=== PATIENT | male | born 1980 | race Hispanic/Latino ===

== ENCOUNTER 2019-02-16 18:15 | Emergency (ER) | payer OTHER ==
--- NOTE | 2019-02-16 19:37 | ER ---
Nurse's Notes [facility] Name: Rocky Lauren Age: 38 yrs Sex: Male : 1980 Arrival Date: 02/16/2019 Time: 18:21 Bed 14 Private MD: Diagnosis: Nondisplaced fracture of fifth metatarsal bone, right foot Presentation: 02/16 18:22 Presenting complaint: Patient states: right foot injury and "heard a pop" today after sv tripping on his shoes. Transition of care: patient was not received from another setting of care. Onset of symptoms was February 16, 2019. Initial Sepsis Screen: Does the patient meet any 2 criteria? No. Patient's initial sepsis screen is negative. Does the patient have a suspected source of infection? No. Patient's initial sepsis screen is negative. Care prior to arrival: None. 18:22 Method Of Arrival: Wheelchair sv 18:22 Acuity: DEYSI 4 sv 19:10 Risk Assessment: Do you want to hurt yourself or someone else? Patient reports no ph desire to harm self or others. Historical: - Allergies: 18:22 No Known Allergies; sv - PMHx: 18:22 Back pain; sv - PSHx: 18:22 None; sv - Immunization history:: Adult Immunizations up to date. - Social history:: Smoking status: Patient/guardian denies using tobacco. - Ebola Screening: : No symptoms or risks identified at this time. Screenin:09 Abuse screen: Denies threats or abuse. Denies injuries from another. Nutritional ph screening: No deficits noted. Tuberculosis screening: No symptoms or risk factors identified. Fall Risk None identified. Assessment: 19:08 Pain: Complains of pain in lateral side of right foot. Neuro: Level of Consciousness is ph awake, alert, obeys commands, Oriented to person, place, time, situation. Cardiovascular: Capillary refill < 3 seconds in bilateral fingers Patient's skin is warm and dry. Respiratory: Airway is patent Respiratory effort is even, unlabored, Respiratory pattern is regular, symmetrical. Derm: Skin is intact, is healthy with good turgor, Skin is pink, warm \\T\\ dry. Musculoskeletal: Circulation, motion, and sensation intact. Range of motion: intact in all extremities, Swelling present in lateral side of right foot. 19:22 Reassessment: Patient appears in no apparent distress at this time. No changes from jb4 previously documented assessment. Patient and/or family updated on plan of care and expected duration. Pain level reassessed. Patient is alert, oriented x 3, equal unlabored respirations, skin warm/dry/pink. 20:02 Reassessment: Patient appears in no apparent distress at this time. Patient and/or jb4 family updated on plan of care and expected duration. Pain level reassessed. Patient is alert, oriented x 3, equal unlabored respirations, skin warm/dry/pink. Pt wheeled out of ED by emergency room technician. verbalized understanding of D/c instructions. Vital Signs: 18:22 BP 134 / 96; Pulse 103; Resp 18; Temp 98.8; Pulse Ox 97% ; Weight 83.91 kg; Height 5 sv ft. 9 in. (175.26 cm); Pain 10/10; 19:22 BP 126 / 97; Pulse 93; Resp 16; Pulse Ox 98% on R/A; jb4 18:22 Body Mass Index 27.32 (83.91 kg, 175.26 cm) sv ED Course: 18:21 Patient arrived in ED. ss4 18:22 Triage completed. sv 18:23 Arm band placed on. sv 18:24 Teresita Anthony, RN is Primary Nurse. ph 18:25 Marshall Manuel PA is PHCP. cp 18:25 Marshall Arciniega MD is Attending Physician. cp 18:48 XRAY Foot RIGHT 3 View In Process Unspecified. EDMS 19:10 Patient has correct armband on for positive identification. Bed in low position. Call ph light in reach. 19:10 No provider procedures requiring assistance completed. Patient did not have IV access ph during this emergency room visit. 19:36 Raymond Aguiar MD is Referral Physician. cp Administered Medications: 20:00 Drug: [place] 5 mg-325 mg 1 tabs Route: PO; jb4 20:00 Follow up: Response: No adverse reaction; Medication administered at discharge. jb4 20:00 Drug: Ibuprofen 800 mg Route: PO; jb4 20:05 Follow up: Response: No adverse reaction; Medication administered at discharge. jb4 Outcome: 19:37 Discharge ordered by MD. cp 20:02 Discharged to home via wheelchair, with family. jb4 20:02 Condition: stable 20:02 Discharge instructions given to patient, family, Instructed on discharge instructions, follow up and referral plans. medication usage, Demonstrated understanding of instructions, follow-up care, medications, Prescriptions given X 2. 20:04 Patient left the ED. jb4 Signatures: Dispatcher [employer] EDMabel Nova, Teresita Tyson RN, RN RN Marshall Cao PA PA cp Bryson, James, RN RN jbMabel Starr ss4
--- NOTE | 2019-02-16 19:38 | EDPHYS ---
Physician Documentation [facility] Name: Rocky Lauren Age: 38 yrs Sex: Male : 1980 Arrival Date: 02/16/2019 Time: 18:21 Bed 14 Private MD: ED Physician Marshall Arciniega HPI: 02/16 19:18 This 38 yrs old Male presents to ER via Wheelchair with complaints of Foot cp Injury. 19:18 The patient presents with an injury, pain, that is acute, swelling, tenderness. The cp complaints affect the proximal right fifth metatarsal. Context: resulted from a mis-step, inversion injury, the patient can partially bear weight, the patient is able to ambulate, with moderate difficulty, uses crutch. Onset: The symptoms/episode began/occurred today. Associated signs and symptoms: Pertinent negatives calf tenderness, numbness. Treatment prior to arrival includes: no previous treatment. Historical: - Allergies: 18:22 No Known Allergies; sv - PMHx: 18:22 Back pain; sv - PSHx: 18:22 None; sv - Immunization history:: Adult Immunizations up to date. - Social history:: Smoking status: Patient/guardian denies using tobacco. - Ebola Screening: : No symptoms or risks identified at this time. ROS: 19:20 Constitutional: Negative for body aches, chills, fever, poor PO intake. cp 19:20 Eyes: Negative for injury, pain, redness, and discharge. cp 19:20 ENT: Negative for drainage from ear(s), ear pain, sore throat, difficulty swallowing, difficulty handling secretions. 19:20 Cardiovascular: Negative for chest pain. 19:20 Respiratory: Negative for cough, shortness of breath, wheezing. 19:20 Abdomen/GI: Negative for abdominal pain, nausea, vomiting, and diarrhea. 19:20 MS/extremity: Positive for ecchymosis, pain, swelling, tenderness, of the lateral side of right foot, Negative for deformity, paresthesias. 19:20 Skin: Negative for rash. 19:20 Neuro: Negative for numbness, tingling. 19:20 All other systems are negative. Exam: 19:25 Constitutional: The patient appears in no acute distress, alert, awake, non-toxic, well cp developed, well nourished. 19:25 Head/Face: Normocephalic, atraumatic. cp 19:25 Neck: ROM/movement: is normal, is supple, without pain, no range of motions limitations. 19:25 Chest/axilla: Inspection: normal. 19:25 Cardiovascular: Rate: normal. 19:25 Respiratory: the patient does not display signs of respiratory distress, Respirations: normal, no use of accessory muscles, no retractions, no splinting, no tachypnea. 19:25 Abdomen/GI: Inspection: abdomen appears normal. 19:25 Back: pain, is absent, ROM is normal. 19:25 Musculoskeletal/extremity: Extremities: grossly normal except: noted in the lateral side of right foot base of fifth metatarsal: ecchymosis, pain, swelling, tenderness, Perfusion: the extremity is normally perfused throughout, Sensation intact. 19:25 Skin: cellulitis, is not appreciated, no rash present. Vital Signs: 18:22 BP 134 / 96; Pulse 103; Resp 18; Temp 98.8; Pulse Ox 97% ; Weight 83.91 kg; Height 5 sv ft. 9 in. (175.26 cm); Pain 10/10; 19:22 BP 126 / 97; Pulse 93; Resp 16; Pulse Ox 98% on R/A; jb4 18:22 Body Mass Index 27.32 (83.91 kg, 175.26 cm) sv Procedures: 20:00 Splinting: Splint applied to right foot using walking boot. applied by nurse. Examined cp by me, post splint application: neurovascular intact, Patient tolerated well. MDM: 18:26 Patient medically screened. cp 19:00 Differential diagnosis: dislocation, closed fracture, contusion. cp 19:34 Test interpretation: by ED physician or midlevel provider: xrays of right foot show cp non-displaced fracture of base of right fifth metatarsal. 19:37 Data reviewed: vital signs, nurses notes, radiologic studies, plain films, and as a cp result, I will discharge patient. 19:37 Counseling: I had a detailed discussion with the patient and/or guardian regarding: the cp historical points, exam findings, and any diagnostic results supporting the discharge/admit diagnosis, radiology results, the need for outpatient follow up, a orthopedic surgeon, to return to the emergency department if symptoms worsen or persist or if there are any questions or concerns that arise at home. Response to treatment: the patient's symptoms have markedly improved after treatment, and as a result, I will discharge patient. 02/16 18:29 Order name: XRAY Foot RIGHT 3 View ph 02/16 19:22 Order name: Walking boot; Complete Time: 19:36 cp Administered Medications: 20:00 Drug: [place] 5 mg-325 mg 1 tabs Route: PO; jb4 20:00 Follow up: Response: No adverse reaction; Medication administered at discharge. jb4 20:00 Drug: Ibuprofen 800 mg Route: PO; jb4 20:05 Follow up: Response: No adverse reaction; Medication administered at discharge. jb4 Disposition: 02/17 08:28 Co-signature as Attending Physician, Marshall Arciniega MD I agree with the assessment and [facility] plan of care. Disposition: 02/16/19 19:37 Discharged to Home. Impression: Nondisplaced fracture of fifth metatarsal bone, right foot. - Condition is Stable. - Discharge Instructions: Metatarsal Fracture. - Prescriptions for Ibuprofen 800 mg Oral Tablet - take 1 tablet by ORAL route every 8 hours As needed take with food; 30 tablet. Tylenol- Codeine #3 300-30 mg Oral Tablet - take 2 tablets by ORAL route every 6 hours As needed; 15 tablet. - Medication Reconciliation Form, Thank You Letter, Antibiotic Education, Prescription Opioid Use form. - Follow up: Raymond Aguiar MD; When: 1 week; Reason: Recheck today's complaints. - Problem is new. - Symptoms have improved. Signatures: Dispatcher [employer] Mabel Hermosillo RN RN sv Anderson, Corey, MD MD cha Page, Corey, PA PA cp Bryson, James, RN RN jb4 Corrections: (The following items were deleted from the chart) 02/16 20:04 19:37 02/16/2019 19:37 Discharged to Home. Impression: Nondisplaced fracture of fifth jb4 metatarsal bone, right foot. Condition is Stable. Forms are Medication Reconciliation Form, Thank You Letter, Antibiotic Education, Prescription Opioid Use. Follow up: Raymond Aguiar; When: 1 week; Reason: Recheck today's complaints. Problem is new. Symptoms have improved. cp
[2019-02-16] MEDS ORDERED: IBUPROFEN 400 MG TAB ONE (19:59)
[2019-02-16] MEDS ORDERED: HYDROCODONE/APAP 5/325 MG TAB ONE (19:59)
--- NOTE | 2019-02-16 20:04 | RAD REPORT ---
EXAM DESCRIPTION: RAD - Foot Right 3 View - 02/16/2019 6:48 pm CLINICAL HISTORY: Right foot pain following trauma COMPARISON: None. FINDINGS: Transverse fracture is present at the base of the fifth metatarsal. No distraction or angu lation deformity. Due to a pes planus configuration, the fifth metatarsal base is poorly visualized o n the lateral view. Correlation is needed with acute symptoms at the base of the fifth metatarsal. No other fracture change or acute finding. Joint space narrowing is present at the first MTP joint. No air or foreign body in the soft tissues. IMPRESSION: Fractures present at the base of the right fifth metatarsal with no distraction or angul ation.
[2019-02-16 20:35] VITALS: TEMP 98.8
[2019-02-16 20:36] VITALS: BP 126/97; O2SAT 98
== END 2019-02-16 20:04 | disposition home or self-care (01) ==
LOC: ER 18:15
DX: S92.354A Nondisplaced fracture of fifth metatarsal bone, right foot, initial encounter for closed fracture (principal); X58.XXXA Exposure to other specified factors, initial encounter; Y93.9 Activity, unspecified; Y92.9 Unspecified place or not applicable
CPT/HCPCS: 99283